=== PATIENT | female | born 1960 | race Caucasian/White ===

== ENCOUNTER 2020-08-31 07:30 | Day surgery (SDC) | payer MEDICARE, OTHER, SELFPAY ==
[2020-08-31] MEDS: Tropicam./Phenyleph. (1/2.5%) 5 ML BTL OS ×3 (07:48→08:00)
[2020-08-31 07:49] VITALS: BP 128/65; PULSE 76; RESP 16; TEMP 36.4; O2SAT 95
[2020-08-31] MEDS: Tetracaine 0.5% 4 ML BTL OS (09:16)
[2020-08-31] MEDS: Balanced Salt Soln.-PLUS 500 ML BAG (09:16)
[2020-08-31] MEDS: Duovisc Viscoelastic System EACH 1 EACH (09:19)
[2020-08-31] MEDS: Lidocaine 1% Pres-Free 5 ML VIAL (09:19)
[2020-08-31] MEDS: Lidocaine 2% Jelly 6 ML SYR (09:20)
--- NOTE | 2020-08-31 09:26 | W.PM.DSUDISC ---
Discharge Plan Disposition Patient Disposition: HOME Condition: Good Discharge Details Attending Provider: Wojciech Redman Primary Care Provider: Hillary Louise Home Meds and New Rx's Prescriptions: No Action multivitamin Tablet 1 tab PO DAILY RF: 0 naproxen 250 mg Tablet 550 mg PO BID RF: 0 venlafaxine 150 mg Capsule,Extended Release 24hr 150 mg PO DAILY RF: 0 tramadol 50 mg Tablet 50 mg PO DAILY PRNRF: 0 levothyroxine 75 mcg Tablet 75 mcg PO DAILY RF: 0 Restasis 0.05 % Dropperette 1 drp ophthalmic (eye) Q12H PRN RF: 0 levalbuterol tartrate [Xopenex HFA] 45 mcg/actuation Hfa Aerosol Inhaler 2 puff INHALATION Q6H PRNRF: 0 pregabalin 75 mg capsule 75 mg PO BID PRNRF: 0 pregabalin [Lyrica] 150 mg Capsule 150 mg PO DAILY RF: 0 budesonide-formoterol [Symbicort] 160-4.5 mcg/actuation Hfa Aerosol Inhaler 2 puff INHALATION BID RF: 0 atorvastatin 10 mg Tablet 10 mg PO DAILY RF: 0 ciclopirox 8 % Solution 1 applic TOPICAL HS RF: 0 dicyclomine 10 mg Capsule 10 mg PO QID RF: 0 Discharge Instructions Stand Alone Forms: Post-op Topical Cataract, Compa Zafar (DSU) Discharge Orders Discharge Orders: Discharge Order (Routine); Ordered 08/31/20 Ordered By: Wojciech Redman DS: Diagnosis Discharge Diagnosis (1) Nuclear sclerotic cataract of left eye: Status: Resolved
--- NOTE | 2020-08-31 09:26 | W.PM.OP ---
Date of service: 08/31/20 Time of Service: 09:26 Operative Note Operative Note DATE OF PROCEDURE: 08/31/20 PRE-OP DIAGNOSIS: Nuclear cataract, left eye POST-OP DIAGNOSIS: same PROCEDURE: Cataract extraction using phacoemulsification with intraocular lens implant, left eye SURGEON: Wojciech Redman ANESTHESIA: MAC and local (sub-tenon's anesthetic infiltration) PATHOLOGY: none sent COMPLICATIONS: None Patient was transported to: same day Patient's condition: stable Implants: Binh [employer] Binh Vision / [employer] Tecnis ZCB00 Indications: Progressive decreased vision due to cataract, left eye Procedure Description: CATARACT SURGERY OPERATIVE REPORT PREOPERATIVE DIAGNOSIS: Nuclear cataract, left eye POSTOPERATIVE DIAGNOSIS: Same OPERATION: Cataract extraction using phacoemulsification with posterior chamber intraocular lens implant, left eye. IOL: IOL Grinder Needle Tip/Model: J&J Vision / CHUCKIE Tecnis ZCB00 IOL Power: + 21.0 diopters IOL Serial Number: [id number] Optic Diameter: 6.0mm Haptic/Overall Diameter: 13.0mm PHACO INFO: GadielAliopartisurion Vision System with OZil and Active Fluidics Cumulative Dispersed Energy (CDE): 6.11 seconds SURGEON: Wojciech Redman MD, EZE ANESTHESIA: Monitored Anesthesia Care (MAC), with local sub-tenon's anesthetic infiltration COMPLICATIONS: None SPECIMENS: None INDICATIONS FOR PROCEDURE: The patient is a 59-year-old lady with history of diminished visual acuity in her left eye secondary to the development of nuclear cataract. She significantly symptomatic. She has narrow angles with intermediate anterior chamber depth but a only slightly short axial length. The option of cataract surgery was offered to the patient and she wished to proceed. PROCEDURE: The correct surgical eye was identified and marked as the left eye and the pupil was dilated in the preoperative area using mydriatics and cycloplegics. The dilated pupil size was 7.5 mm. Oral sedation was administered in the form of an Imprimis MKO Melt (midazolam 3mg/ketamine 25mg/ondansetron 2mg). The patient was brought to the operating room where cardiopulmonary monitoring was instituted and surgical time-out was performed, confirming the correct operative eye and IOL power. Topical anesthesia was administered and ophthalmic povidone-iodine 5% was instilled into the conjunctival fornices. Lidocaine gel was applied to the cornea and the anayeli-ocular area was prepped with Betadine 10% solution and draped in the usual sterile fashion for intraocular surgery, including an aperture drape. A Tegaderm transparent film dressing was cut in half and used to cover the lashes and lid margins. Care was taken to sequester the lashes and lid margins under the Tegaderm dressing. A lid speculum was placed between the lids of the operative eye and the Dinora-Barry operating microscope was maneuvered into position. Fish scissors were then used to make a conjunctival buttonhole approximately 6mm posterior to the limbus in the inferonasal quadrant. Blunt dissection was carried out to expose bare sclera, and a blunt-tipped sub-tenon?s anesthesia cannula was introduced and passed posteriorly along the globe where non-preserved plain lidocaine was injected into posterior sub-Tenon?s space. A sideport knife was used to make a paracentesis port superior/superiortemporally. Intraocular phenylephrine/lidocaine was injected into the anterior chamber. The anterior chamber was then filled with viscoelastic. A 2.4mm keratome knife was used to create a half-thickness groove at the limbus and then to construct a three-plane near-clear corneal tunnel extending 2.0mm into clear cornea in the temporal position. . A flap was raised on the anterior capsule and capsulorhexis forceps were used to complete a continuous curvilinear capsulorhexis of 5.5 mm. Balanced salt solution was then used to perform cortical cleaving hydrodissection and nuclear hydrodelineation until the lens could be freely rotated within the capsular bag. The lens nucleus was then disassembled and removed within the capsular bag and iris plane using phacoemulsification. Residual cortical material was removed using the 45-degree angled silicone I/A tip with 0.3mm port. The posterior capsule was carefully polished to remove as much residual lens epithelial cells as safely possible. The capsular bag was then inflated and the anterior chamber deepened with viscoelastic. The lens implant described above was inserted into the capsular bag using the CHUCKIE [place] Injector. A Kuglen hook was used to dial the IOL into position. Residual viscoelastic was then removed first from posterior to the IOL, then from the anterior chamber using the I/A handpiece. The lens implant was noted to center nicely within the capsular bag. The incisions were stromally hydrated, and the anterior chamber was reformed using BSS. Then 0.5cc of moxifloxacin 1.0mg/ml were injected into the capsular bag and anterior chamber. The incisions were checked with a Weck spear and found to be secure. Several drops of ophthalmic povidone-iodine 5% were then applied to the eye followed by two drops of Imprimis combination prednisolone/moxifloxacin/nepafenac solution. The drapes were removed and a clear plastic protective eye shield was placed over the eye. The patient was then returned to Same Day Surgery in stable condition.
[2020-08-31] MEDS: Povidone-Iodine Ophth 30 ML BTL (09:28)
[2020-08-31 09:56] VITALS: BP 117/58; PULSE 76; RESP 18; TEMP 36.3; O2SAT 93
--- OUTSIDE RECORDS SUMMARY | 2020-08-31 10:39 | XMS_ITS | Encounter Summary ---
:1960 Author Care Team Providers Name Role Phone Hillary Louise MD Primary Care Provider Unavailable Phoebe Sheth MD General Surgeon [phone] Chris Bowles MD Canine Service Teacher [phone] Reason for Visit pre-op check Assessment and Plan 1. Hyperlipidemia Patient does not have any side effects to the atorvastatin. Her LDL decreased from 190 to 100. Continue atorvastatin 10 mg daily. Will update labs now. ? atorvastatin 10 mg tablet ? lipid panel, serum ? CMP, serum or plasma ? CBC w/ auto diff 2. Arthropathy More swelling in hands and fee t; did see rheumatology years ago and dx with fibromyalgia. Will update inflammatory m arkers. ? CRP, high sensitivity, ser um or plasma ? ESR (erythrocyte sedimenta tion rate), blood ? rf (rheumatoid factor), se rum ? cyclic citrullinated pepti de Ab, quant immunoassay, serum ? CHENCHO (antinuclear antibodie s) screen, serum 3. Hypothyroidism Updating TSH ? TSH, serum or plasma 4. Fibromyalgia Taking lyrica 150 mg BID which has been effective. Not interested starting naltrexone. Recently lyrica has not been as effective; increasing Lyrica to 150 mg TID. ? Lyrica 150 mg capsule 5. Pre-surgery evaluation Examination today is within no rmal limits. Patient does not have a history of coronary artery disease, cardiac arrhythmia, or heart failure. Patient does not have diabetes mellitus or renal in sufficiency. Patient is at low risk for cardiac complications with the proposed procedure. Patient should proceed with surgery without additional cardiac workup advised at this time. She is going to check with opthal about naproxen and if she needs a COVID test prior. Greater than 50% of this 25 minute appoi ntment was spent in counseling. Discussion Note: None recorded.Patient educational handouts: No information available. Plan of Care Reminders Provider Appointments Follow up 09/07/2020 Me terrie Joe 9:00AM MD [place] ? Return to on or around Zenaida Sheth Office 12/11/2028 Lab Lipid Panel, 08/24/2020 [facility] Serum Hospital Lab (Internal) ? CMP, Serum or 08/24/2020 [facility] Plasma Hospital Lab (Internal) ? CBC W/ Auto 08/24/2020 [facility] Diff Hospital Lab (Internal) ? CRP, High 08/24/2020 [facility] Sensitivity, Serum or Hospital L ab Plasma (Internal) ? ESR 08/24/2020 [facility] (Erythrocyte Hospital Lab Sedimentation Rate), (Internal) Blood ? Rf (Rheumatoid 08/24/2020 [facility]), Serum Hospital Lab (Internal) ? Cyclic 08/24/2020 [facility] Citrullinated Peptide Ab, Hospit al Lab Quant Immunoassay, Serum (Pbx Repairer al) ? CHENCHO 08/24/2020 [facility] (Antinuclear Antibodies) Hospita l Lab Screen, Serum (Internal) ? TSH, Serum or 08/24/2020 [facility] Plasma Hospital Lab (Internal) Referral None recorded. ? ? Procedures None recorded. ? ? Surgeries None recorded. ? ? Imaging None recorded. ? ? Medications Name Start Date ? ? atorvastatin 10 mg tablet ? Take 1 tablet every day by oral route. Chantix Starting Month Box 0.5 mg (11)-1 mg (42) table ts in dose pack ? Take 1 tablet every day by oral route. ciclopirox 8 % topical solution ? APPLY TO THE AFFECTED AREA(S) BY TOPICA L ROUTE ONCE DAILY PREFERABLY AT BEDTIME OR 8 HOURS BEFORE WASHING dicyclomine 10 mg capsule ? Take 1 capsule 4 times a day by oral route as needed for 90 days. levothyroxine 75 mcg tablet ? Take 1 tablet every day by oral route in the morning for 24 days. Lyrica 150 mg capsule ? Take 1 capsule 3 times a day by oral route. Lyrica 75 mg capsule ? Take 2 capsules twice a day by oral route as needed. Metamucil 30.9 % oral powder ? Take 1 tbsp every day by oral route as needed. Multivitamin 50 Plus tablet ? Take 1 tablet every day by oral route. naproxen sodium 550 mg tablet ? Take 1 tablet twice a day by oral route for 90 days. Restasis MultiDose 0.05 % eye drops ? INSTILL 1 DROP INTO AFFECTED EYE(S) BY OPHTHALMIC ROU TE EVERY 12 HOURS Symbicort 160 mcg-4.5 mcg/actuation HFA aerosol inhale r ? Inhale 2 puffs twice a day by inhalation route as nee ded. tramadol 50 mg tablet ? Take 1 tablet every day by oral route as needed. venlafaxine ER 150 mg capsule,extended release 24 hr ? Take 1 capsule every day by oral route. Xopenex HFA 45 mcg/actuation aerosol inhaler ? Inhale 2 puffs every 6 hours by inhalation route as n eeded. Notes: Medications reviewed 2019 Medications Administered None recorded. Vitals Height Weight BMI Blood Pressure 5 ft 3.25 in 149 lbs 4.8 oz 26.2 kg/m2 140/76 mm[Hg] Results Lab Results None recorded. Allergies Code Code System Name Reaction Severity Onset NKDA ? ? ? Notes: sensitive to bottle cleaner and perfume aromas Problems Name Status Onset Date Source ? Benign Neoplasm of Rectum Active ? Histor y Hypothyroidism Active ? History Hyperlipidemia Active ? History Obesity Active ? History Overweight Active ? History Nicotine Dependence Active ? History Depressive Disorder Active ? History Chronic Obstructive Lung Disease Active ? History Irritable Bowel Syndrome Active ? History Arthritis Active ? History Fibromyalgia Active ? History Acquired Hallux Valgus Active ? History Lack of Energy Active ? History Contusion of Pelvic Region Active ? Histo ry Closed Fracture of Distal End of Right Radius Active ? 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 History Long-term Current Use of Drug Therapy Active ? History Arthralgia of Temporomandibular Joint Active ? History Procedures Date Name Performed by ? 12/11/2018 Colonoscopy Information not avai lable Notes: 1 sm polyp, pandiverticulosis. 11/14/2017 Ldct for Lung Ca Screen Information not available Notes: New LLL density, 3 month follo w up recommended 08/17/2017 Orthopedic Surgery Information not avai lable Notes: Right ORIF distal radius 08/21/2001 Nasal Surgery Procedure Information not available 08/21/1983 Tubal Ligation Information not avai lable 08/21/1980 Appendectomy Information not avai lable ? Hysterectomy Information not avai lable ? Tonsillectomy Information not avai lable Notes: At age 4 Vaccine List Vaccine Type influenza, injectable, quadrivalent 06/19/2018 07/05/2019 influenza, injectable, quadrivalent, pre servative free 06/01/2020 influenza, seasonal, injectable 06/06/2006 08/06/2009 05/27/2010?0.5 mL 07/03/2015?0.5 mL 05/25/2016?0.5 mL influenza, seasonal, injectable, preserv ative free 05/23/2008 08/06/2009?0.5 mL 05/25/2011?0.5 mL 05/29/2012?0.5 mL 06/19/2013?0.5 mL 06/20/2014?0.5 mL pneumococcal conjugate PCV 13 07/03/2015?0.5 mL pneumococcal polysaccharide PPV23 06/12/2012?0.5 mL Td (adult), adsorbed 08/21/2005 Tdap 03/09/2011?0.5 mL varicella Social History Tobacco Smoking Status Current Every Day Smoker Notes: 3/ 4 pack daily Alcohol intake Occasional Notes: 1-2x month Live alone or with others? with others Notes: spo use Blind or serious difficulty N Notes: co rrective lenses seeing Language Difficulties No Hard of hearing or deaf in one N or both ears? Most Recent Tobacco Use 12/14/2018 Screening Advance directive N Caffeine intake Occasional Notes: 2-3 cups o f tea daily Drug Use N Tobacco-years of use 40 Exercise level Occasional Notes: stays acti ve at home, walking daily Family History Relation Problem Onset Age of Age Notes Mother Diabetes mellitus (No N/A (No Notes) Information) Mother Hypertensive disorder (No N/A (No No armando) Information) Mother Family history of (No N/A ovarian cancer Information) Father Aneurysm (No N/A abdominal Information) Father Chronic obstructive (No N/A (No Note s) lung disease Information) Father Emphysema (No N/A (No Notes) Information) Functional Status No Impairment. Past Encounters 08/24/2020 Hyperlipidemia; Arthropathy; Hypothyroid ism; Fibromyalgia; Pre-surgery Evaluation Hillary Louise MD: [address] [place] [phone], Ph. History of Present Illness ? Pre-Op Reported By: Patient HPI: Surgery to be Performed: ; c ataract surgery 08/31 & 09/14; [facility]. Severity: moderate. Risk Factors no cognitive impairment, no mal nutrition, no alcohol misuse, no illicit drug use, not obese, unable to climb a flight of stairs (exercise capacity<4 METS, smoker. Ane sthesia hx: no hx of anesthesia complications, no allergy to anesthetic agents, no family history of anesthesia complications. Fu nctional Ability: cannot walk up stairs, difficulty walking up hills; Gets winded with exertion Note: <p>Pt. is not using Chantix because meds by mail will not deliver and [facility]adez at [employer] expensive. Offered our medication assistance program. Pt. plans to use patches provided from [facility] at this point.</p><p>
</p><p>Pt. wants statin refilled. Plans to have fasting labs drawn after visit.</p><p>
</p><p>Pt. feels that her Lyrica is no longer working for her pain and wants to discuss.</p><p>
</p><p>No fevers chills sweats</p><p>Has more congestion but this is clear</p ><p>Endorses stable shortness of breath</p><p>She has a chronic cough</p><p>Smoking less than a pack of cigarettes</p><p>
</p> Review of Systems ? Notes: <p>Gen: No fevers, chills, s weats. Weight stable.</p><p>HEENT: Denies vision changes. Denies hearing wolfe ges. Denies dysphagia. Denies odynophagia.</p><p>CV: Denie s chest pain. Denies chest pressure. Denies heart palpitations.</p><p>RESP: en dorses cough. Denies shortness of breath. Denies wheezing.</p><p>GI: Denies a bdominal pain. Denies diarrhea. Denies constipation. Denies melena. Denies hematochezia.</p><p>: Denies urinary incontinence. Denies dysuria .</p><p>MSK: endorses joint pain.</p><p>Skin: Denies rash. Denies skin les ions.</p><p>Neuro: Denies headaches. Denies imbalance. Denies numbness a nd tingling in extremities.</p><p>Psych: Denies depression. Denies anxiety.< /p> Physical Exam ? Notes: <p>Gen: Well appearing. No a pparent distress.</p><p>HEENT: EOMI, PERRLA. Tympanic membranes clear gunner aterally. No cervical lymphadenopathy. No carotid bruits.</p><p>CV: RRR, no mu rmurs, rubs, gallops.</p><p>RESP: clear to auscultation bilaterally. no wheezes, rubs, rhonchi</p><p>ABD: nondistended</p><p>MSK: syno vial swelling of MCPs</p><p>EXT: no peripheral edema</p><p>SKIN: no rashes. no skin lesions</p><p>Neuro: CN II- XII grossly intact. Alert and or iented x 3</p><p>Psych: Appropriate affect and mood.</p>
--- OUTSIDE RECORDS SUMMARY | 2020-08-31 10:39 | XMS_ITS | Encounter Summary ---
:1960 Author Care Team Providers Name Role Phone Hillary Louise MD Primary Care Provider Unavailable Phoebe Sheth MD General Surgeon [phone] Chris Bowles MD Director Talent Acquisition [phone] Reason for Visit annual exam Assessment and Plan 1. Administration of influenza v accine ? Fluarix Quad (PF ) 60 mcg (15 mcg x 4)/0.5 mL IM syringe 2. Arthralgia of temporomandibul ar joint Left-sided trismus with tender ness at TMJ. Recommended dental evaluation 3. Fibromyalgia Taking lyrica 150 mg BID which has been effective. Not interested interested in increasing dosage, or starting naltrexone. 4. Irritable bowel syndrome Continuing to be symptomatic w ith episodes of incontinence, but slightly more stable on dicyclomine four times daily with once daily metamucil 5. Adult health examination Blood pressure well controlled . Very limited activity. Continues to smoke; not interested in sm oking cessation aids. CT of lungs negative 03/2020 Mammogram 10/2019 Colonoscopy 11/2018 one hyperplastic poly p Family history of ovarian cancer (mother at age 70) Drinks alcohol once a month. Done with pap smears; has had a hyst wit h bilateral oophorectomy Normal sugar 11/2018 Normal cholesterol 11/2018 Updating blood work. Medicare paperwork completed 6. Hyperlipidemia Patient does not have any side effects to the atorvastatin. Her LDL decreased from 190 to 100. Continue atorvastatin 10 mg daily. ? lipid panel, serum ? CMP, serum or plasma ? CBC w/ auto diff 7. Hypothyroidism ? TSH, serum or plasma 8. Nicotine dependence Getting rid of the cigarettes is the most important thing to help reduce risk of lung cancer. She has agreed to start Chantix Starting month. Greater than 50% of this 30 minute appoi ntment was spent in counseling. ? Chantix Starting Month Box 0.5 mg (11)-1 mg (42) tablets in dose pack Discussion Note: None recorded.Patient educational handouts: No information available. Plan of Care Reminders Provider Appointments Follow up 09/07/2020 Hillary Joe 20 9:00AM MD [place] ? Return to on or around Zenaida vasiliy Sheth, Office 12/11/2028 Lab Lipid 06/01/2020 [facility] Panel, Serum Hospital Lab (Internal) ? CMP, 06/01/2020 [facility] Serum or Plasma Hospital Lab (Internal) ? CBC W/ 06/01/2020 [facility] Auto Diff Hospital Lab (Internal) ? TSH, 06/01/2020 [facility] Serum or Plasma Hospital Lab (Internal) Referral None ? ? recorded. Procedures None ? ? recorded. Surgeries None ? ? recorded. Imaging None ? ? recorded. Medications Name Start Date ? ? atorvastatin [...] BMI Blood Pressure 5 ft 3.25 in 150 lbs 26.4 kg/m2 130/64 mm[Hg] Results Lab Results None recorded. Allergies Code Code System Name Reaction Severity Onset NKDA ? ? ? Notes: sensitive to ship cleaner and perfume aromas Problems Name Status [...] Information) Functional Status No Impairment. Past Encounters 06/01/2020 Administration of Influenza Vaccine; Art hralgia of Temporomandibular Joint; Fibromyalgia; Irritable Bowel Syndrome; Adult Health Examination; Hyperlipidemia; Hypothyroidism; Nicotine Dependence Hillary Louise MD: [address] [place] [phone], Ph. History of Present Illness ? Adult CPE Reported By: Patient Social/Behavioral History: Diet and Nutrition: ; could be better. Fracture Risk: history of fractures. Physic al Activity: does not exercise on a regular basis. 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 Vision: ; early cataract Note: <p>mammo 10/22/2019</p><p>colonoscopy 12/11/2018</p><p>CT low dose Ca 03/26/2020</p><p>
</p><p>Patient reports that overall she is has been doing well. Patient reports that she has a history of her jaw popping in the past. She went to the dentist, when she had to open er jaw wide, and since that time, she has not had nathan jaw pop. Over the past month, she has had intermittent jaw pain, typically associated with the feeling of her jaw being out of place. The pain is in her left jaw and radiates to the back of the head. Typically it resolves on its own. Previously, when this happened over the past years, she would be able to forceable pop her jaw. She does not recall any preceding events, and the pain is not triggered with eating. She has tried tylenol, with minimal effect.</p><p>
</p><p>Patient feels that the fibromyalgia is tolerable on the twice daily Lyrica, though winter tends to make her symptoms worse. She notes that her IBS continues to be an issues, having to wear adult diapers, due to herepisodes that she cannot make it to the bathroom. Patient reports that physical activity during winter is difficult, but in the summer, has been doing yardwork and walks.</p><p>
&lt ;/p><p>She denies lightheadedness, dizziness, chest pain, shortness of breath, nausea/vomiting, or changes in urination.</p>Review of Systems: ROS as noted in the HPI Review of Systems None recorded. Physical Exam ? Notes: <p>General: Well appearing o lder woman, in no apparent distress</p><p>HEENT: PERRLA, EOMI, sclerae anicte alvin, mucous membranes moist, mild left-sided trismus with tenderness at t he left TMJ</p><p>CV: RRR,. normal S1/S2, no m/r/g</p><p>Resp: Clear to a uscultation bilaterally, no wheezes rhonchi rales</p><p>ABdomen: Soft no n-tender, non-distended</p><p>Extremities: DP/PT pulses 2+</p><p>
</p>
--- OUTSIDE RECORDS SUMMARY | 2020-08-31 10:39 | XMS_ITS ---
:1960 Author Care Team Providers Name Role Phone HILLARY LOUISE MD Primary Care Provider Unavailable CHRIS PATEL MD Development System Efficiency Manager [phone] MCKINLEY ALEXANDER MD General Surgeon [phone] Allergies Code Code System Name Reaction Severity Status Onset NKDA ? Notes: sensitive to globe cleaner and perfume aromas Medications Name Status Start Date Stop Date ? ? acetaminophen 300 mg-codeine 30 mg tablet Completed 201107/24/2012 1-2 Tablet: Every 6 hours as needed Advair Diskus 250 mcg-50 mcg/dose powder for inhalation Complete d 10/22/2014 10/23/2014 1 (one) puff: bid - twice daily amoxicillin 500 mg capsule Completed 04/29/200905/13 1 (one) Cap: three times a day Ativan 1 mg tablet Completed 05/04/2011 05/04/2011 1 Tablet: daily atorvastatin 10 mg tablet Active ? Not av ailable Take 1 tablet every day by oral route. azithromycin 250 mg tablet Completed 06/12/201706/17 1 (one) Tablet: daily black cohosh root extract 160 mg capsule Completed 010 08/10/2010 1 (one) Capsule: daily ? strength Cenestin 0.625 mg tablet Completed 09/23/2008 009 1 Tablet: QD Cenestin 0.9 mg tablet Completed 06/12/2007 7 1 (one) Tablet: every three days then dc Chantix Starting Month Box 0.5 mg (11)-1 mg (42) tablets in dose pack Active ? Not available Take 1 tablet every day by oral route. ciclopirox 8 % topical solution Active ? Not available APPLY TO THE AFFECTED AREA(S) BY TOPICA L ROUTE ONCE DAILY PREFERABLY AT BEDTIME OR 8 HOURS BEFORE WASHING Crestor 40 mg tablet Completed 03/07/2012 03/07/2012 1 (one) Tablet: daily dicyclomine 10 mg capsule Active ? Not av ailable Take 1 capsule 4 times a day by oral route as needed for 90 day s. folic acid 1 mg tablet Completed 07/04/2011 3 1 Tablet: daily gabapentin 800 mg tablet Completed 03/07/2012 012 1-2 Tablet: 1 hour before bed Levaquin 500 mg tablet Completed 11/16/2017 8 1 (one) Tablet: daily for seven days levothyroxine 75 mcg tablet Active ? Not available Take 1 tablet every day by oral route in the morning for 24 day s. Lexapro 10 mg tablet Completed 10/06/2006 01/10/2007 1 (one) Tablet: Daily loratadine 10 mg tablet Completed 05/29/2012 05/29/20 12 1 (one) Tablet: daily Lyrica 150 mg capsule Active ? Not availa ble Take 1 capsule 3 times a day by oral route. Lyrica 75 mg capsule Active ? Not availab le Take 2 capsules twice a day by oral route as needed. Metamucil 30.9 % oral powder Active ? Not available Take 1 tbsp every day by oral route as needed. methotrexate sodium 2.5 mg tablet Completed 03/27/2013 03/27/2013 6 Tablet: every other week Metrogel Vaginal 0.75 % Completed 06/08/2007 06/08/20 07 1 (one) Applicator(s): Each evening metronidazole 500 mg tablet Completed 09/06/201108/22 1 (one) Tablet: two times daily multivitamin Completed ? 04/06/2018 1 TAB DAILY Multivitamin 50 Plus tablet Active ? Not available Take 1 tablet every day by oral route. naproxen sodium 550 mg tablet Active ? No t available Take 1 tablet twice a day by oral route for 90 days. nicotine (polacrilex) 2 mg buccal lozenge Completed 201407/03/2015 1 (one) Lozenge: Four times daily as needed Ocuvite 150 mg-30 unit-5 mg-150 mg capsule Completed 06/1206/13/2017 1 (one) Capsule: daily omeprazole 40 mg capsule,delayed release Completed 013 04/24/[address]: daily Percocet 5 mg-325 mg tablet Completed 06/29/201104/2011 1-2 Tablet: every six hours as needed for pain pravastatin 40 mg tablet Completed 06/27/2012 012 1 (one) Tablet: daily prednisone 10 mg tablet Completed 06/29/2011 06/29/20 11 1 Tablet: qd - daily Restasis MultiDose 0.05 % eye drops Active ? Not available INSTILL 1 DROP INTO AFFECTED EYE(S) BY OPHTHALMIC ROUTE EVERY 1 2 HOURS Rhinocort Aqua 32 mcg/actuation nasal spray Completed 02/200508/02/2005 1 spray: Daily sertraline 100 mg tablet Completed 01/26/2014 014 2 (two) Tablet: daily simvastatin 80 mg tablet Completed 11/02/2011 012 1 (one) Tablet: at bedtime Spiriva with HandiHaler 18 mcg and inhalation capsules Completed ? 04/06/2018 Inhale 1 capsule every day by inhalation route as needed. Symbicort 160 mcg-4.5 mcg/actuation HFA aerosol inhaler Active ? Not available Inhale 2 puffs twice a day by inhalation route as needed. tramadol 50 mg tablet Active ? Not availa ble Take 1 tablet every day by oral route as needed. trazodone 100 mg tablet Completed 10/20/2017 10/21/19 18 1 Tablet: at bedtime venlafaxine ER 150 mg capsule,extended release 24 hr Active ? Not available Take 1 capsule every day by oral route. venlafaxine ER 225 mg tablet,extended release 24 hr Completed ? 01/03/2020 Take 1 tablet every day by oral route. Wal-Profen 200 mg tablet Completed 01/24/2014 015 2 (two) Tablet: three times daily Xopenex HFA 45 mcg/actuation aerosol inhaler Active ? Not available Inhale 2 puffs every 6 hours by inhalation route as needed. Notes: Medications reviewed 2019 Problems Name Status Onset Date Source ? Benign Neoplasm of Rectum Active ? Histor y Hypothyroidism Active ? History Hyperlipidemia Active ? History Obesity Active ? History Overweight Active ? History Nicotine Dependence Active ? History Depressive Disorder Active ? History Tracheobronchitis Unknown ? History Chronic Obstructive Lung Disease Active ? History Irritable Bowel Syndrome Active ? History Arthritis Active ? History Fibromyalgia Active ? History Acquired Hallux Valgus Active ? History Lack of Energy Active ? History Contusion of Lower Back Unknown ? History Contusion of Pelvic Region Active ? Histo ry Adult Health Examination Unknown ? History Screening Mammography Unknown ? History Closed Fracture of Distal End of Right Radius Active ? 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 History Arthritis Unknown ? History Finding of Esophagus Unknown ? History Long-term Current Use of Drug Therapy Active ? History Procedure by Method Unknown ? History Arthralgia of Temporomandibular Joint Active [...] not avai lable Notes: At age 4 01/12/2018 CT, Chest, W/o Contrast [facility] (Internal) [address] [place] [address] (Work Place) 08/10/2018 MAMMO, Screening, Tomosynthesis, [facility] Rad[facility] (Internal) Bilateral [address] [place] [address] ( (Work Place) 12/14/2018 LDCT, Chest, for Lung Cancer Screening [facility] Radiology (Internal) [address] [place] [address] (Work Place) 10/02/2019 MAMMO, Screening, Tomosynthesis, [facility] (Internal) Bilateral [address] [place] [address] (Work Place) 02/28/2020 LDCT, Chest, for Lung Cancer Screening [facility] (Internal) [address] [place] [address] (Work Place) Results Lab Results Date Name Specimen Result Interpretation Description Value Range Status Address ? 12/14/2018 CBC W/ Auto BLD - Wbc 8.6 5.0-10.0 Final [facility] Diff 10*3/uL 10*3/uL [facility] [address] ? ? BLD - Rbc 4.92 4.10-5.30 Final [facility] 10*6/uL 10*6/uL [facility] ([facility] : [address] ? ? BLD - Hgb 14.6 g/dL 12.0-16.0 Final Nort h g/dL [facility] L [facility] (Internal) : [address] ? ? BLD - Hct 45.7 % 37.0-47.[address] [facility] L [facility] (Internal) : [address] ? ? BLD - Mcv 92.9 fL 80.0-96.0 Final [facility] L [facility] (Internal) : [address] ? ? BLD - Mch 29.7 pg 26.0-32.0 Final [facility] L ab (Internal) : [address] ? ? BLD - Mchc 31.9 g/dL 31.0-35.0 Final Nort h g/dL [facility] (Internal) : [address] ? ? BLD - Rdw 12.4 % 11.5-14.[address] [facility] L [facility] (Internal) : [address] ? ? BLD - Plt 237 130-450 Final North 10*3/uL 10*3/uL [facility] (Internal) : [address] ? ? BLD - Anc 5.23 ? Final [place] 10*3/uL [facility] L [facility] (Internal) : [address] ? ? BLD - Neutro 61.0 % 40.0-75.[address] [facility] (Internal) : [address] ? ? BLD - Lymph 25.5 % 20.0-50.[address] [facility] (Internal) : [address] ? ? BLD - [place] 9.0 % 2.0-10.[address] [facility] (Internal) : [address] ? ? BLD - Eos 3.6 % 1.0-6.0 % [facility] [address] ? ? BLD - Baso 0.6 % 0.0-1.0 % [facility] [address] ? ? BLD - Ig 0.3 % 0.0-0.9 % Final [place] [facility] (Internal[facility] : [address] 12/14/2018 Lipid Panel, S - Chol 179 mg/dL 50-200 Shivani l [facility] Serum mg/dL [facility] ([facility] : [address] ? ? S High Trig 203 mg/dL 10-150 Final [facility] mg/dL [facility] ([facility]) : [address] ? ? S Low Hdl 39 mg/dL 40-60 Final [facility] mg/dL [facility] ([facility] : [address] ? ? S - Ldl 99 mg/dL 0-130 Final [facility] mg/dL [facility] ([facility] : [address] 12/14/2018 CMP, Serum or S - g/r 85 mg/dL 74-106 Shivani l [facility] Plasma mg/dL [facility] (Internal[facility] : [address] ? ? S High Bun 20 mg/dL 7-17 Final [facility] mg/dL [facility] ([facility] : [address] ? ? S - Crea 0.90 0.52-1.04 Final [facility] mg/dL mg/dL [facility] (Internal[facility] : [address] ? ? S - Ca 10.0 8.4-10.2 Final [facility] mg/dL mg/dL [facility] (Internal) : [address] ? ? S - Na 138 137-145 Final [facility] mmol/L mmol/L [facility] (Internal) : [address] ? ? S - K 4.2 3.5-5.1 Final [facility] mmol/L mmol/L [facility] (Internal[facility] : [address] ? ? S - Cl 104 98-107 Final [facility] mmol/L mmol/L [facility] ([facility] : [address] ? ? S - Tco2 27.0 22.0-30.0 Final [facility] mmol/L mmol/L [facility] L [facility] (Internal) : [address] ? ? S - Tp 7.6 g/dL 6.3-8.2 Final [facility] g/dL [facility] (Internal) : [address] ? ? S - Alb 4.0 g/dL 3.5-5.0 Final [facility] g/dL [facility] (Internal) : [address] ? ? S - Tbil 0.6 mg/dL 0.2-1.3 Final North mg/dL [facility] L ab (Internal) : [address] ? ? S - Alp 130 U/L 50-136 Final [facility] U/L [facility] L ab (Internal) : [address] ? ? S - Alt (Sgpt) 14 U/L 9-52 U/L Final [facility] : [address] ? ? S - Ast (Sgot) 29 U/L 14-36 U/L Final No rth [facility] L [facility] (Internal) : [address] 12/14/2018 TSH, Serum or S - Tsh 0.74 0.47-4.68 Fin al [facility] Plasma u[IU]/mL u[IU]/mL [facility] ([facility] : [address] 12/11/2018 Pathology TISS - Report results ? Final N orth Study below [facility] L ab (Internal) : [address] 04/03/2018 Lipid Panel, S - Chol 198 mg/dL 50-200 Shivani l [facility] Serum mg/dL [facility] (Internal) : [address] ? ? S High Trig 282 mg/dL 10-150 Final North mg/dL [facility] (Internal) : [address] ? ? S - Hdl 42 mg/dL 40-60 Final [facility] mg/dL [facility] (Internal) : [address] ? ? S - Ldl 100 mg/dL 0-130 Final [place] mg/dL [facility] [address] [facility] 04/03/2018 Hepatitis C S - Hep C Ab W negative negat F inal [place] Virus Ab, Rfx PCR [facility] L ab (Internal) : [address] [facility] 04/03/2018 Hepatitis B S - Hep B negative ? Final [place] Surface Ab, Surface Ab C ountry Qualitative, Hosp ital Lab Serum (Internal) : [address] ? ? S - Hbs <3.1 ? Final [place] Antibody, mIU/mL [facility] L [facility] (Internal) : [address] [facility] 04/03/2018 HBsAg S - Hep B negative negat Final Nort h (Hepatitis B Surface Ag [facility] Surface Ag), Hosp ital Lab Serum (Internal) : [address] [facility] 04/03/2018 Hbcab MISC - Hbc IgM negative negative Final [place] (Hepatitis B Ab, S Coun try Core Ab) Igm, Hos pital Lab Serum (Internal) : [address] [facility] 10/20/2017 Venipuncture BLD ? Venpn* ? ? Final [facility] (Internal) : [address] [facility] 10/20/2017 Neutrophil BLD ? Anc-manual 4.54 ? Shivani l [place] Count, 10*3/uL [facility] Lab (Anc), Blood (Int ernal): [address] [place] 10/20/2017 Differential, BLD ? Polys 51 % 40-75 % Final [facility], Blood Cou [facility] L ab (Internal) : [address] ? ? BLD ? Bands 0 % 0-5 % Final [facility] L [facility] (Internal) : [address] ? ? BLD ? Lymphs 30 % 20-50 % Final [facility] L [facility] (Internal) : [address] ? ? BLD High [place] 15 % 2-10 % Final [facility] L [facility] (Internal) : [address] ? ? BLD ? Eos 4 % 0-6 % Final [facility] (Internal) : [address] ? ? BLD ? Baso 0 % 0-1 % Final [facility] L ab (Internal) : [address] ? ? BLD ? Atyp Lymph 0 % ? Final [facility] L ab (Internal) : [address] ? ? BLD ? Plts, Est. adequate adequate Final N orth [facility] L ab (Internal) : [address] ? ? BLD ? RBC normal normal Final [place] [facility] L [facility] (Internal) : [address] 10/20/2017 Lipid Panel, S High Chol 302 mg/dL 50-200 Shivani l [facility] Serum mg/dL [facility] L ab (Internal) : [address] ? ? S High Trig 364 mg/dL 10-150 Final [facility] mg/dL [facility] (Internal) : [address] ? ? S Low Hdl 38 mg/dL 40-60 Final [facility] mg/dL [facility] L [facility] (Internal) : [address] ? ? S High Ldl 191 mg/dL 0-130 Final [facility] mg/dL [facility] L [facility] (Internal) : [address] 10/20/2017 CMP, Serum or S ? g/r 87 mg/dL 74-106 Shivani l [facility] Plasma mg/dL [facility] L [facility] (Internal) : [address] t ? ? S ? Bun 16 mg/dL 7-17 Final [place] mg/dL [facility] (Internal) : [address] ? ? S ? Crea 0.90 0.52-1.04 Final North mg/dL mg/dL [facility] (Internal) : [address] ? ? S ? Ca 9.9 mg/dL 8.4-10.2 Final [facility] mg/dL [facility] L [facility] (Internal) : [address] t ? ? S ? Na 140 137-145 Final North mmol/L mmol/L [facility] L ab (Internal) : [address] ? ? S ? K 4.2 3.5-5.1 Final [place] mmol/L mmol/L [facility] L ab (Internal) : [address] ? ? S ? Cl 101 98-107 Final [place] mmol/L mmol/L [facility] L ab (Internal) : [address] ? ? S ? Tco2 29.0 22.0-30.0 Final [place] mmol/L mmol/L [facility] L ab (Internal) : [address] ? ? S ? Tp 7.4 g/dL 6.3-8.2 Final [place] g/dL [facility] L ab (Internal) : [address] t ? ? S ? Alb 4.0 g/dL 3.5-5.0 Final [place] g/dL [facility] (Internal) : [address] ? ? S ? Tbil 0.4 mg/dL 0.2-1.3 Final [place] mg/dL [facility] (Internal) : [address] ? ? S ? Alp 105 U/L 50-136 Final [place] U/L [facility] (Internal) : [address] ? ? S ? Alt (Sgpt) 26 U/L 9-52 U/L Final Nor th [facility] L ab (Internal) : [address] ? ? S High Ast (Sgot) 38 U/L 14-36 U/L Final No rth [facility] L ab (Internal) : [address] 10/20/2017 CBC W/ Auto BLD ? Wbc 8.9 5.0-10.0 Final [place] Diff 10*3/uL 10*3/uL [facility] : [address] ? ? BLD ? Rbc 4.92 4.10-5.30 Final [place] 10*6/uL 10*6/uL [facility] L [facility] (Internal) : [address] ? ? BLD ? Hgb 14.5 g/dL 12.0-16.0 Final Nort h g/dL [facility] L [facility] (Internal) : [address] ? ? BLD ? Hct 45.5 % 37.0-47.0 Final [place] % [facility] L ab (Internal) : [address] ? ? BLD ? Mcv 92.5 fL 80.0-96.0 Final [facility] L ab (Internal) : [address] ? ? BLD ? Mch 29.5 pg 26.0-32.0 Final [facility] L ab (Internal) : [address] ? ? BLD ? Mchc 31.9 g/dL 31.0-35.0 Final Nort h g/dL [facility] L ab (Internal) : [address] ? ? BLD ? Rdw 12.6 % 11.5-14.[address] [facility] L ab (Internal) : [address] ? ? BLD ? Plt 251 130-450 Final [place] 10*3/uL 10*3/uL [facility] L ab (Internal) : [address] t 10/20/2017 TSH, Serum or S ? Tsh 1.36 0.47-4.[address] [facility] Plasma u[IU]/mL u[IU]/mL [facility] L ab (Internal) : [address] t 08/11/2017 Venipuncture BLD ? Venpn* ? ? Final [facility] L ab (Internal) : [address] t 08/11/2017 CBC W/ Auto BLD High Wbc 10.3 5.0-10.0 Final [place] Diff 10*3/uL 10*3/uL [facility] L ab (Internal) : [address] ? ? BLD ? Rbc 4.84 4.10-5.30 Final [place] 10*6/uL 10*6/uL [facility] L ab (Internal) : [address] ? ? BLD ? Hgb 14.7 g/dL 12.0-16.0 [facility] (Internal[facility] : [address] ? ? BLD ? Hct 45.4 % 37.0-47.[address] [facility] L ab (Internal) : [address] ? ? BLD ? Mcv 93.8 fL 80.0-96.0 Final [facility] L ab (Internal) : [address] ? ? BLD ? Mch 30.4 pg 26.0-32.0 Final [facility] L ab (Internal) : [address] ? ? BLD ? Mchc 32.4 g/dL 31.0-35.0 Final Nort h g/dL [facility] L ab (Internal) : [address] ? ? BLD ? Rdw 12.1 % 11.5-14.[address] [facility] (Internal) : [address] ? ? BLD ? Plt 253 130-450 Final North 10*3/uL 10*3/uL [facility] L ab (Internal) : [address] ? ? BLD ? Anc 6.38 ? Final [place] 10*3/uL [facility] L [facility] (Internal) : [address] ? ? BLD ? Neutro 62.2 % 40.0-75.[address] [facility] ab (Internal) : [address] ? ? BLD ? Lymph 25.8 % 20.0-50.[address] [facility] (Internal) : [address] ? ? BLD ? [place] 8.2 % 2.0-10.[address] [facility] L ab (Internal) : [address] ? ? BLD ? Eos 2.6 % 1.0-6.0 % Final [facility] L ab (Internal) : [address] ? ? BLD ? Baso 0.6 % 0.0-1.0 % Final [facility] L ab (Internal) : [address] ? ? BLD ? Ig 0.6 % 0.0-0.9 % Final [facility] L ab (Internal) : [address] t 08/11/2017 CMP, Serum or S Low g/r 71 mg/dL 74-106 Sh[facility] l [facility] Plasma mg/dL [facility] L [facility] (Internal) : [address] ? ? S High Bun 20 mg/dL 7-17 Final [place] mg/dL [facility] L [facility] (Internal) : [address] ? ? S ? Crea 0.90 0.52-1.04 Final North mg/dL mg/dL [facility] L ab (Internal) : [address] ? ? S ? Ca 9.5 mg/dL 8.4-10.2 Final [facility] mg/dL [facility] L ab (Internal) : [address] t ? ? S ? Na 139 137-145 Final North mmol/L mmol/L [facility] L ab (Internal) : [address] ? ? S ? K 4.1 3.5-5.1 Final [place] mmol/L mmol/L [facility] L ab (Internal) : [address] ? ? S ? Cl 104 98-107 Final [facility] mmol/L mmol/L [facility] L ab (Internal) : [address] ? ? S ? Tco2 28.0 22.0-30.0 Final [facility] mmol/L mmol/L [facility] L ab (Internal) : [address] ? ? S ? Tp 7.2 g/dL 6.3-8.2 Final North g/dL [facility] L [facility] (Internal) : [address] t ? ? S ? Alb 4.0 g/dL 3.5-5.0 Final [facility] g/dL [facility] L [facility] (Internal) : [address] ? ? S ? Tbil 0.6 mg/dL 0.2-1.3 Final North mg/dL [facility] L [facility] (Internal) : [address] ? ? S ? Alp 110 U/L 50-136 Final [place] U/L [facility] L ab (Internal) : [address] ? ? S ? Alt (Sgpt) 34 U/L 9-52 U/L Final [facility] L ab (Internal) : [address] ? ? S ? Ast (Sgot) 23 U/L 14-36 U/L Final No rth [facility] L ab (Internal) : [address] t 09/30/2016 Venipuncture BLD ? Venpn* ? ? Final [facility] L ab (Internal) : [address] 09/30/2016 CMP, Serum or S ? g/r 91 mg/dL 74-106 Shivani l [facility] Plasma mg/dL [facility] ([facility] : [address] ? ? S ? Bun 17 mg/dL 7-17 Final [facility] mg/dL [facility] (Internal) : [address] ? ? S ? Crea 0.90 0.52-1.04 Final North mg/dL mg/dL [facility] (Internal) : [address] ? ? S ? Ca 9.4 mg/dL 8.4-10.2 Final [facility] mg/dL [facility] (Internal) : [address] ? ? S ? Na 141 137-145 Final [facility] mmol/L mmol/L [facility] (Internal) : [address] ? ? S ? K 4.6 3.5-5.1 Final [place] mmol/L mmol/L [facility] (Internal) : [address] ? ? S ? Cl 102 98-107 Final [facility] mmol/L mmol/L [facility] (Internal) : [address] ? ? S High Tco2 31.0 22.0-30.0 Final [facility] mmol/L mmol/L [facility] (Internal) : [address] ? ? S ? Tp 7.6 g/dL 6.3-8.2 Final [facility] g/dL [facility] (Internal) : [address] ? ? S ? Alb 4.2 g/dL 3.5-5.0 Final [facility] g/dL [facility] (Internal) : [address] ? ? S ? Tbil 0.5 mg/dL 0.2-1.3 Final [facility] mg/dL [facility] (Internal) : [address] ? ? S ? Alp 108 U/L 50-136 Final [facility] U/L [facility] (Internal) : [address] ? ? S ? Alt (Sgpt) 28 U/L 9-52 U/L Final [facility] (Internal) : [address] ? ? S High Ast (Sgot) 41 U/L 14-36 U/L Final No rth [facility] L ab (Internal) : [address] t 09/30/2016 CBC W/ Auto BLD High Wbc 11.5 5.0-10.0 Final [place] Diff 10*3/uL 10*3/uL [facility] [facility] [address] [place] ? ? BLD ? Rbc 4.83 4.10-5.30 Final [place] 10*6/uL 10*6/uL [facility] (Internal) : [address] t ? ? BLD ? Hgb 14.5 g/dL 12.0-16.0 Final Nort h g/dL [facility] (Internal) : [address] t ? ? BLD ? Hct 44.8 % 37.0-47.[address] [facility] (Internal) : [address] t ? ? BLD ? Mcv 92.8 fL 80.0-96.0 Final [facility] (Internal) : [address] t ? ? BLD ? Mch 30.0 pg 26.0-32.0 Final [facility] (Internal) : [address] t ? ? BLD ? Mchc 32.4 g/dL 31.0-35.0 Final Nort h g/dL [facility] (Internal) : [address] t ? ? BLD ? Rdw 12.7 % 11.5-14.[address] [facility] (Internal) : [address] t ? ? BLD ? Plt 264 130-450 Final [place] 10*3/uL 10*3/uL [facility] (Internal) : [address] t ? ? BLD ? Anc 6.67 ? Final [place] 10*3/uL [facility] (Internal) : [address] t ? ? BLD ? Neutro 58.2 % 40.0-75.[address] [facility] (Internal) : [address] t ? ? BLD ? Lymph 27.6 % 20.0-50.[address] [facility] (Internal) : [address] ? ? BLD ? [place] 9.9 % 2.0-10.0 Final [place] % [facility] (Internal) : [address] ? ? BLD ? Eos 3.3 % 1.0-6.0 % Final [facility] L [facility] (Internal) : [address] ? ? BLD ? Baso 0.7 % 0.0-1.0 % Final [facility] (Internal) : [address] ? ? BLD ? Ig 0.3 % 0.0-0.9 % Final [facility] (Internal) : [address] 09/30/2016 Lipid Panel, S High Chol 251 mg/dL 50-200 Sh[place] l [place] Serum mg/dL [facility] (Internal) : [address] ? ? S High Trig 365 mg/dL 10-150 Final North mg/dL [facility] (Internal) : [address] ? ? S Low Hdl 36 mg/dL 40-60 Final [place] mg/dL [facility] (Internal) : [address] ? ? S High Ldl 142 mg/dL 0-130 Final [place] mg/dL [facility] (Internal) : [address] 09/30/2016 TSH, Serum or S ? Tsh 1.78 0.47-4.68 Fin al [place] Plasma u[IU]/mL u[IU]/mL [facility] L ab (Internal) : [address] Past Encounters 08/24/2020 Hyperlipidemia; Arthropathy; Hypothyroid ism; Fibromyalgia; Pre-surgery Evaluation Hillary Louise MD: [address] [place] [phone], Ph. 06/01/2020 Administration of Influenza Vaccine; Art hralgia of Temporomandibular Joint; Fibromyalgia; Irritable Bowel Syndrome; Adult Health Examination; Hyperlipidemia; Hypothyroidism; Nicotine Dependence Hillary Louise MD: [address] [place] [phone], Ph. 01/29/2020 Chris Patel MD: [address] [place] [phone], Ph. 01/29/2020 Fibromyalgia; Irritable Bowel Syndrome Hillary Louise MD: [address] [place] [phone], Ph. 10/02/2019 Fibromyalgia; Screening Mammography Hillary Louise MD: [address] [place] [phone], Ph. 05/02/2019 Hillary Louise MD: [address] [place] [phone], Ph. 04/18/2019 Adult Health Examination; Depressive Dis order; Fibromyalgia Hillary Louise MD: [address] [place] [phone], Ph. Social History Tobacco Smoking Status Current Every Day Smoker Notes: 3/ 4 pack daily Vaccine List Vaccine Type influenza, injectable, quadrivalent 06/19/2018 07/05/2019 influenza, injectable, quadrivalent, pre servative free 06/01/2020 influenza, seasonal, injectable 06/06/2006 08/06/2009 05/27/2010?0.5 mL 07/03/2015?0.5 mL 05/25/2016?0.5 mL influenza, seasonal, injectable, preserv ative free 05/23/2008 08/06/2009?0.5 mL 05/25/2011?0.5 mL 05/29/2012?0.5 mL 06/19/2013?0.5 mL 06/20/2014?0.5 mL pneumococcal conjugate PCV 13 07/03/2015?0.5 mL pneumococcal polysaccharide PPV23 06/12/2012?0.5 mL Td (adult), adsorbed 08/21/2005 Tdap 03/09/2011?0.5 mL varicella Plan of Care Reminders Provider Appointments None ? ? recorded. Lab None ? ? recorded. Referral None ? ? recorded. Procedures None ? ? recorded. Surgeries None ? ? recorded. Imaging None ? ? recorded. Vitals 08/24/2020 08:00AM Preop Clearance 40 Height Weight BMI Blood Pressure 160.66 cm 67.72 kg 26.2 kg/m2 140/76 mm[Hg] 06/01/2020 09:20AM CPE 40 Height Weight BMI Blood Pressure 160.66 cm 68.04 kg 26.4 kg/m2 130/64 mm[Hg] 01/29/2020 11:00AM Follow Up 20 Height Weight BMI Blood Pressure 157.48 cm 68.95 kg 27.8 kg/m2 118/78 mm[Hg] 10/02/2019 11:40AM Follow Up 20 Height Weight BMI Blood Pressure 157.48 cm 70.31 kg 28.3 kg/m2 110/78 mm[Hg] 04/18/2019 10:00AM CPE 40 Height Weight BMI Blood Pressure 157.48 cm 68.95 kg 27.8 kg/m2 120/68 mm[Hg] 12/14/2018 09:40AM Follow Up 20 Height Weight BMI Blood Pressure 160.02 cm 70.76 kg 27.6 kg/m2 134/70 mm[Hg] 08/10/2018 11:00AM Follow Up 20 Height Weight BMI Blood Pressure 160.02 cm 70.76 kg 27.6 kg/m2 142/70 mm[Hg] 04/06/2018 10:40AM Follow Up 20 Height Weight BMI Blood Pressure 160.02 cm 70.22 kg 27.4 kg/m2 122/74 mm[Hg] 10/20/2017 Weight Blood Pressure 68.66 kg 116/70 mm[Hg] 08/11/2017 Height Weight Blood Pressure 160.02 cm 70.76 kg 116/60 mm[Hg] 06/12/2017 Blood Pressure 112/68 mm[Hg] 12/09/2016 Blood Pressure 110/60 mm[Hg] 11/17/2016 Weight Blood Pressure 71.44 kg 116/62 mm[Hg] 09/30/2016 Weight Blood Pressure 72.26 kg 123/58 mm[Hg] 05/25/2016 Height Weight Blood Pressure 157.48 cm 72.08 kg 113/58 mm[Hg] 01/22/2016 Weight Blood Pressure 72.12 kg 114/70 mm[Hg] 07/03/2015 Weight Blood Pressure 75.89 kg 129/60 mm[Hg] 02/02/2015 Weight Blood Pressure 77.93 kg 100/62 mm[Hg] 10/29/2014 Weight Blood Pressure 79.15 kg 92/68 mm[Hg] 10/22/2014 Height Weight Blood Pressure 157.48 cm 79.47 kg 112/66 mm[Hg] 06/20/2014 Height Weight Blood Pressure 157.48 cm 80.6 kg 132/72 mm[Hg] 06/13/2014 Height Weight Blood Pressure 158.75 cm 76.02 kg 126/68 mm[Hg] 05/06/2014 Height Weight Blood Pressure 158.75 cm 76.02 kg 130/72 mm[Hg] 03/10/2014 Height Weight Blood Pressure 158.75 cm 76.02 kg 104/64 mm[Hg] 01/24/2014 Weight Blood Pressure 76.43 kg 116/64 mm[Hg] 06/19/2013 Height Weight Blood Pressure 157.48 cm 76.07 kg 118/70 mm[Hg] 05/22/2013 Height Weight Blood Pressure 157.48 cm 75.48 kg 122/76 mm[Hg] 04/24/2013 Height Weight Blood Pressure 157.48 cm 75.25 kg 116/68 mm[Hg] 03/27/2013 Height Weight Blood Pressure 157.48 cm 74.93 kg 102/60 mm[Hg] 11/22/2012 Height Weight Blood Pressure 160.02 cm 72.67 kg 118/68 mm[Hg] 07/24/2012 Height Weight Blood Pressure 160.02 cm 70.81 kg 116/70 mm[Hg] 06/27/2012 Height Weight Blood Pressure 160.02 cm 69.85 kg 110/66 mm[Hg] 06/14/2012 Height Weight Blood Pressure 160.02 cm 69.85 kg 135/78 mm[Hg] 06/12/2012 Height Weight Blood Pressure 160.02 cm 71.3 kg 84/58 mm[Hg] 05/29/2012 Height Weight Blood Pressure 160.02 cm 71.62 kg 104/70 mm[Hg] 03/07/2012 Weight Blood Pressure 73.2 kg 122/60 mm[Hg] 11/02/2011 Weight Blood Pressure 73.3 kg 126/70 mm[Hg] 09/06/2011 Height Weight Blood Pressure 160.02 cm 72.26 kg 108/60 mm[Hg] 08/24/2011 Height Weight Blood Pressure 160.02 cm 72.71 kg 110/70 mm[Hg] 06/29/2011 Weight Blood Pressure 72.94 kg 112/70 mm[Hg] 05/25/2011 Height Weight Blood Pressure 158.75 cm 72.71 kg 120/70 mm[Hg] 05/04/2011 Height Weight Blood Pressure 158.75 cm 71.71 kg 114/68 mm[Hg] 04/06/2011 Weight Blood Pressure 73.62 kg 128/64 mm[Hg] 03/09/2011 Height Weight Blood Pressure 158.75 cm 72.03 kg 114/70 mm[Hg] 11/17/2010 Height Weight Blood Pressure 158.75 cm 70.03 kg 104/58 mm[Hg] 08/10/2010 Height Weight Blood Pressure 158.75 cm 70.35 kg 110/58 mm[Hg] 07/16/2010 Weight Blood Pressure 70.76 kg 124/64 mm[Hg] 05/18/2010 Weight Blood Pressure 70.94 kg 126/68 mm[Hg] 01/14/2010 Weight Blood Pressure 69.85 kg 122/68 mm[Hg] 08/06/2009 Weight Blood Pressure 67.59 kg 116/60 mm[Hg] 06/02/2009 Weight Blood Pressure 68.95 kg 118/74 mm[Hg] 04/29/2009 Weight Blood Pressure 68.49 kg 120/76 mm[Hg] 02/04/2009 Weight Blood Pressure 69.4 kg (1) 110/70 mm[Hg] (2) 98/50 mm[Hg] 12/02/2008 Weight Blood Pressure 73.03 kg 116/68 mm[Hg] 09/23/2008 Weight Blood Pressure 75.75 kg 120/80 mm[Hg] 08/19/2008 Height Weight Blood Pressure 157.48 cm 76.66 kg 124/70 mm[Hg] 05/26/2008 Weight Blood Pressure 79.38 kg 128/72 mm[Hg] 05/23/2008 Weight Blood Pressure 80.29 kg 150/80 mm[Hg] 01/08/2008 Weight Blood Pressure 80.29 kg 130/80 mm[Hg] 08/15/2007 Weight Blood Pressure 76.2 kg 120/73 mm[Hg] 08/02/2007 Height Weight Blood Pressure 158.75 cm 76.66 kg 124/76 mm[Hg] 06/12/2007 Weight Blood Pressure 75.75 kg 130/80 mm[Hg] 05/12/2007 Weight Blood Pressure 75.07 kg 130/70 mm[Hg] 04/07/2007 Weight Blood Pressure 75.98 kg 124/70 mm[Hg] 10/06/2006 Weight Blood Pressure 75.3 kg 130/80 mm[Hg] 09/26/2006 Blood Pressure 160/92 mm[Hg] 07/19/2006 Height Weight Blood Pressure 160.02 cm 72.57 kg 116/78 mm[Hg] 03/07/2006 Weight Blood Pressure 69.85 kg 124/70 mm[Hg] 08/02/2005 Weight Blood Pressure 68.66 kg 110/80 mm[Hg] 05/12/2005 Height Weight Blood Pressure 160.02 cm 70.31 kg 106/64 mm[Hg] 03/23/2005 Height Weight Blood Pressure 160.02 cm 71.67 kg 126/78 mm[Hg] 01/03/2005 Height Weight Blood Pressure 160.02 cm 72.57 kg 108/68 mm[Hg] 08/27/2004 Weight Blood Pressure 71.21 kg 142/86 mm[Hg]
== END 2020-08-31 10:02 | disposition home or self-care (01) ==
PROVIDERS: PCP Internal Medicine; Visit Provider Ophthalmology
PROC: (CPT 66984; principal; 2020-08-31 09:30)
DX: H25.12 Age-related nuclear cataract, left eye (principal); H40.032 Anatomical narrow angle, left eye; J44.9 Chronic obstructive pulmonary disease, unspecified
CPT/HCPCS: 66984; V2632

== ENCOUNTER 2020-09-14 06:57 | Day surgery (SDC) | payer MEDICARE, OTHER, SELFPAY ==
[2020-09-14 07:09] VITALS: BP 134/52; PULSE 77; RESP 16; TEMP 36.4; O2SAT 95
[2020-09-14] MEDS: Tropicam./Phenyleph. (1/2.5%) 5 ML BTL OD ×3 (07:20→07:31)
[2020-09-14] MEDS: Tetracaine 0.5% 4 ML BTL OD (08:26)
[2020-09-14] MEDS: Povidone-Iodine Ophth 30 ML BTL (08:27)
[2020-09-14] MEDS: Lidocaine 2% Jelly 6 ML SYR (08:27)
[2020-09-14] MEDS: Lidocaine 1% Pres-Free 5 ML VIAL (08:32)
[2020-09-14] MEDS: Balanced Salt Soln.-PLUS 500 ML BAG (08:35)
[2020-09-14] MEDS: Duovisc Viscoelastic System EACH 1 EACH (08:36)
--- NOTE | 2020-09-14 08:53 | W.PM.DSUDISC ---
Discharge Plan Disposition Patient Disposition: HOME Condition: Good Discharge Details Attending Provider: Wojciech Redman Primary Care Provider: Hillary Louise Home Meds and New Rx's Prescriptions: No Action multivitamin Tablet 1 tab PO DAILY RF: 0 naproxen 250 mg Tablet 550 mg PO BID RF: 0 venlafaxine 150 mg Capsule,Extended Release 24hr 150 mg PO DAILY RF: 0 tramadol 50 mg Tablet 50 mg PO DAILY PRNRF: 0 levothyroxine 75 mcg Tablet 75 mcg PO DAILY RF: 0 Restasis 0.05 % Dropperette 1 drp ophthalmic (eye) Q12H PRN RF: 0 levalbuterol tartrate [Xopenex HFA] 45 mcg/actuation Hfa Aerosol Inhaler 2 puff INHALATION Q6H PRNRF: 0 pregabalin 75 mg capsule 75 mg PO BID PRNRF: 0 pregabalin [Lyrica] 150 mg Capsule 150 mg PO DAILY RF: 0 budesonide-formoterol [Symbicort] 160-4.5 mcg/actuation Hfa Aerosol Inhaler 2 puff INHALATION BID RF: 0 atorvastatin 10 mg Tablet 10 mg PO DAILY RF: 0 ciclopirox 8 % Solution 1 applic TOPICAL HS RF: 0 dicyclomine 10 mg Capsule 10 mg PO QID RF: 0 Discharge Instructions Stand Alone Forms: Post-op Topical Cataract, Compa Zafar (DSU) Discharge Orders Discharge Orders: Discharge Order (Routine); Ordered 09/14/20 Ordered By: Wojciech Redman DS: Diagnosis Discharge Diagnosis (1) Nuclear sclerotic cataract of right eye: Status: Resolved
--- NOTE | 2020-09-14 08:53 | W.PM.OP ---
Date of service: 09/14/20 Time of Service: 08:53 Operative Note Operative Note DATE OF PROCEDURE: 09/14/20 PRE-OP DIAGNOSIS: Nuclear cataract, right eye POST-OP DIAGNOSIS: same PROCEDURE: Cataract extraction using phacoemulsification with intraocular lens implant, right eye SURGEON: Wojciech Redman ANESTHESIA: MAC and local (sub-tenon's anesthetic infiltration) ESTIMATED BLOOD LOSS: 0 PATHOLOGY: none sent COMPLICATIONS: None Patient was transported to: same day Patient's condition: stable Implants: [employer] / [employer] Tecnis [id number] intraocular lens Indications: Progressive decreased vision due to cataract, right eye Procedure Description: CATARACT SURGERY OPERATIVE REPORT PREOPERATIVE DIAGNOSIS: Nuclear cataract, right eye POSTOPERATIVE DIAGNOSIS: Same OPERATION: Cataract extraction using phacoemulsification with posterior chamber intraocular lens implant, right eye. IOL: IOL [employer] Sales Representative/Model: [employer] / CHUCKIE Tecnis ZCB00 IOL Power: + 20.5 diopters IOL Serial Number: [id number] Optic Diameter: 6.0mm Haptic/Overall Diameter: 13.0mm PHACO INFO: [employer]urion Vision System with OZil and [employer]uid[employer] Cumulative Dispersed Energy (CDE): 3.11 seconds SURGEON: Wojciech Redman MD, EZE ANESTHESIA: Monitored Anesthesia Care (MAC), with local sub-tenon's anesthetic infiltration COMPLICATIONS: None SPECIMENS: None INDICATIONS FOR PROCEDURE: Patient is a 59-year-old lady with history of diminished visual acuity in both eyes secondary to development of bilateral nuclear cataract. She has already undergone cataract surgery in her left eye and is doing well postoperatively. She now presents for cataract surgery in the right eye. PROCEDURE: The correct surgical eye was identified and marked as the right eye and the pupil was dilated in the preoperative area using mydriatics and cycloplegics. The dilated pupil size was 7.0 mm. Oral sedation was administered in the form of an Imprimis MKO Melt (midazolam 3mg/ketamine 25mg/ondansetron 2mg). The patient was brought to the operating room where cardiopulmonary monitoring was instituted and surgical time-out was performed, confirming the correct operative eye and IOL power. Topical anesthesia was administered and ophthalmic povidone-iodine 5% was instilled into the conjunctival fornices. Lidocaine gel was applied to the cornea and the anayeli-ocular area was prepped with Betadine 10% solution and draped in the usual sterile fashion for intraocular surgery, including an aperture drape. A Tegaderm transparent film dressing was cut in half and used to cover the lashes and lid margins. Care was taken to sequester the lashes and lid margins under the Tegaderm dressing. A lid speculum was placed between the lids of the operative eye and the Dinora-Barry operating microscope was maneuvered into position. Fish scissors were then used to make a conjunctival buttonhole approximately 6mm posterior to the limbus in the inferonasal quadrant. Blunt dissection was carried out to expose bare sclera, and a blunt-tipped sub-tenon?s anesthesia cannula was introduced and passed posteriorly along the globe where non-preserved plain lidocaine was injected into posterior sub-Tenon?s space. A sideport knife was used to make a paracentesis port inferiortemporally. Intraocular phenylephrine/lidocaine was injected into the anterior chamber. The anterior chamber was then filled with viscoelastic. A 2.4mm keratome knife was used to create a half-thickness groove at the limbus and then to construct a three-plane near-clear corneal tunnel extending 2.0mm into clear cornea in the superiortemporal position. . A flap was raised on the anterior capsule and capsulorhexis forceps were used to complete a continuous curvilinear capsulorhexis of 5.0 mm. Balanced salt solution was then used to perform cortical cleaving hydrodissection and nuclear hydrodelineation until the lens could be freely rotated within the capsular bag. The lens nucleus was then disassembled and removed within the capsular bag and iris plane using phacoemulsification. Residual cortical material was removed using the I/A handpiece. The posterior capsule was carefully polished to remove as much residual lens epithelial cells as safely possible. The capsular bag was then inflated and the anterior chamber deepened with viscoelastic. The lens implant described above was inserted into the capsular bag using the CHUCKIE Garland Injector. A Kuglen hook was used to dial the IOL into position. Residual viscoelastic was then removed first from posterior to the IOL, then from the anterior chamber using the I/A handpiece. The lens implant was noted to center nicely within the capsular bag. The incisions were stromally hydrated, and the anterior chamber was reformed using BSS. Then 0.5cc of moxifloxacin 1.0mg/ml were injected into the capsular bag and anterior chamber. The incisions were checked with a Weck spear and found to be secure. Several drops of ophthalmic povidone-iodine 5% were then applied to the eye followed by two drops of Imprimis combination prednisolone/moxifloxacin/nepafenac solution. The drapes were removed and a clear plastic protective eye shield was placed over the eye. The patient was then returned to [facility] Surgery in stable condition.
[2020-09-14 09:20] VITALS: BP 112/59; PULSE 77; RESP 16; TEMP 36.6; O2SAT 95
== END 2020-09-14 09:23 | disposition home or self-care (01) ==
PROVIDERS: PCP Internal Medicine; Visit Provider Ophthalmology
PROC: (CPT 66984; principal; 2020-09-14 08:30)
DX: H25.11 Age-related nuclear cataract, right eye (principal); Z98.42 Cataract extraction status, left eye; Z96.1 Presence of intraocular lens; J44.9 Chronic obstructive pulmonary disease, unspecified
CPT/HCPCS: 66984; V2632